=== PATIENT | female | born 1975 | race Caucasian/White ===

== ENCOUNTER 2018-07-08 14:14 | Emergency (ER) | payer SELFPAY ==
[~2018-07-08] VITALS: Ht 167.6 cm; Wt 75.6 kg
[2018-07-08] MEDS ORDERED: KEPPRA750 MG PO (14:32)
[2018-07-08] MEDS ORDERED: TOPROL XL 50MG50 MG PO (14:33)
[2018-07-08] MEDS ORDERED: MAG-OX 400400 MG/TAB PO (14:34)
[2018-07-08] MEDS ORDERED: K-DUR20 MEQ PO (14:35)
[2018-07-08] MEDS ORDERED: KRISTALOSE10 GM/PACK (14:35)
[2018-07-08] MEDS ORDERED: SYNTHROID0.125 MG/T PO (14:35)
[2018-07-08] MEDS ORDERED: K-TAB20 (14:36)
[2018-07-08 16:46] LABS: BASO # 0.1 (0.0-0.2); EOS % 0.4 % (0-4.0); GRAN # 3.6 (1.4-6.5); HEMOGLOBIN 12.2 g/dl (12.5-16.0); LYMPH # 3.8 (1.2-3.4); LYMPH % 46.5 % (20.0-51.0); MEAN CELL VOLUME 95 fl (80.0-100.0); MEAN CORPUSCULAR HEMOGLOBIN 33 pg (27.0-31.0); MEAN CORPUSCULAR HGB CONC 35 g/dl (33.0-37.0); MEAN PLATELET VOLUME 11.6 fl (7.4-10.4); MONO # 0.7 (0.1-0.6); MONO % 8.7 % (1.7-9.3); PLATELET COUNT 118 K/mm3 (130-400); RED BLOOD COUNT 3.66 M/mm3 (4.10-5.30); REDCELL DISTRIBUTION WIDTH-CV 21.6 % (11.5-14.5)
[2018-07-08 16:49] LABS: HEMATOCRIT 34.9 % (37.0-47.0)
[2018-07-08] MEDS ORDERED: BONINE25 MG PO (17:00)
[2018-07-08 17:02] LABS: C-REACTIVE PROTEIN < 0.5 mg/dL (0.0-0.9)
[2018-07-08 17:04] LABS: ALANINE AMINOTRANSFERASE 133 U/L (9-52); ALBUMIN 4.2 gm/dL (3.5-5.0); ALKALINE PHOSPHATASE 105 U/L (50-136); ANION GAP 22 mmol/L (7-16); AST,SGOT 643 U/L (15-37); BILIRUBIN,TOTAL 2.7 mg/dL (0.0-1.0); BLOOD UREA NITROGEN 9 mg/dL (7-17); CALCIUM 8.7 mg/dL (8.4-10.2); CARBON DIOXIDE 15 mmol/L (22-30); CHLORIDE 107 mmol/L (98-107); CREATININE, serum 0.88 mg/dL (0.52-1.25); GLUCOSE 76 mg/dL (74-106); SODIUM 143 mmol/L (137-145); TOTAL PROTEIN 7.7 gm/dL (6.4-8.2)
[2018-07-08 17:05] LABS: POTASSIUM 3.6 mmol/L (3.4-5.0)
[2018-07-08 17:10] LABS: TROPONIN-I < 0.012 ng/mL (0.000-0.034)
[2018-07-08 17:54] LABS: PROTHROMBIN TIME 11.9 SECONDS (9.7-12.8)
[2018-07-08 18:18] VITALS: BP 104/71; PULSE 89; TEMP 98.2
== END 2018-07-08 18:19 | disposition home or self-care (01) ==
LOC: COL.ER 14:14
PROVIDERS: Nurse Practitioner; Physician Assistant
DX: R42 Dizziness and giddiness (principal); R94.5 Abnormal results of liver function studies; I10 Essential (primary) hypertension; E03.9 Hypothyroidism, unspecified; G40.909 Epilepsy, unspecified, not intractable, without status epilepticus
CPT/HCPCS: J7030

== ENCOUNTER 2018-07-13 20:15 | Inpatient (IN) | payer SELFPAY ==
[~2018-07-13] VITALS: Ht 167.6 cm; Wt 77.0 kg
[~2018-07-13 20:15] MED LIST: BONINE25 MG PO; K-DUR20 MEQ PO; K-TAB20; KEPPRA750 MG PO; KRISTALOSE10 GM/PACK; MAG-OX 400400 MG/TAB PO; SYNTHROID0.125 MG/T PO; TOPROL XL 50MG50 MG PO
[2018-07-13 22:40] LABS: BASO % 0.4 % (0.0-2.0); EOS # 0.2 (0.0-0.7); EOS % 2.5 % (0-4.0); GRAN # 3.9 (1.4-6.5); GRAN % 46.7 % (42.2-75.2); HEMOGLOBIN 11.9 g/dl (12.5-16.0); LYMPH # 2.9 (1.2-3.4); LYMPH % 33.8 % (20.0-51.0); MEAN CELL VOLUME 99 fl (80.0-100.0); MEAN CORPUSCULAR HEMOGLOBIN 35 pg (27.0-31.0); MEAN CORPUSCULAR HGB CONC 35 g/dl (33.0-37.0); MONO # 1.2 (0.1-0.6); MONO % 14.7 % (1.7-9.3); PLATELET COUNT 121 K/mm3 (130-400)
[2018-07-13 22:43] LABS: HEMATOCRIT 33.7 % (37.0-47.0)
[2018-07-13 22:47] LABS: PARTIAL THROMBOPLASTIN TIME 30.3 SECONDS (26.0-37.0)
[2018-07-13 22:52] LABS: INR 1.1 (0.8-3.0); PROTHROMBIN TIME 12.7 SECONDS (9.7-12.8)
[2018-07-13 23:09] LABS: ALANINE AMINOTRANSFERASE 99 U/L (9-52); ALBUMIN 4.1 gm/dL (3.5-5.0); ALKALINE PHOSPHATASE 119 U/L (50-136); ANION GAP 11 mmol/L (7-16); AST,SGOT 191 U/L (15-37); BILIRUBIN,TOTAL 2.2 mg/dL (0.0-1.0); BLOOD UREA NITROGEN 14 mg/dL (7-17); CALCIUM 10.7 mg/dL (8.4-10.2); CARBON DIOXIDE 30 mmol/L (22-30); CHLORIDE 90 mmol/L (98-107); CREATINE KINASE 79 U/L (30-135); CREATININE, serum 0.96 mg/dL (0.52-1.25); GLUCOSE 119 mg/dL (74-106); LIPASE 843 U/L (23-300); SODIUM 130 mmol/L (137-145); TOTAL PROTEIN 7.2 gm/dL (6.4-8.2)
[2018-07-13 23:25] LABS: ALCOHOL(ethanol),MEDICAL < 10 mg/dL; POTASSIUM 2.4 mmol/L (3.4-5.0); TROPONIN-I < 0.012 ng/mL (0.000-0.034)
[2018-07-14] VITALS (12 sets, daily range): BP systolic 104–137; BP diastolic 62–94; PULSE 95–107; TEMP 97.7–98.8
--- NOTE | 2018-07-14 03:10 | NUR ---
PT ADMITTED WITH Dx OF PANCREATITIS. FLUIDS, POTASSIUM AND MAGNESIUM INFUSING. SEE 5 PAGE ADMISSION ASSESSMENT.
--- NOTE | 2018-07-14 03:28 | NUR ---
INFORMED BY NURSE PRACTITIONER AND SUPERVISOR OF OPERATIONS THAT THE HOSPITALIST WAS TO BE CALLED FOR ORDERS. DR. MERLOS DID NOT ANSWER HIS PHONE AND HIS ANSWERING SYSTEM SAID THERE WAS NO MORE ROOM FOR MESSAGES.
--- NOTE | 2018-07-14 04:07 | NUR ---
PT REPORTS SEEING A MIDGET/LITTLE PERSON IN HER ROOM AND IN HER BATHROOM.
--- NOTE | 2018-07-14 09:25 | NUR ---
Assessment complete.patient awake,a/ox4.c/o back pain and rates pain at a 8/10.prn morphine given.IVF infusing at this time.c/o of epigastric discomfort.reports abdomen feels better.remains on detox protocol and seizure precautions.reports hallucinations.Doctor Sujatha notified and Psych. consult ordered. not oncall till 07/17/17. updated. no other concerns voiced at this time.will continue to monitor.call light in reach
[2018-07-14 09:57] LABS: ALBUMIN 3.4 gm/dL (3.5-5.0); BILIRUBIN,TOTAL 1.9 mg/dL (0.0-1.0); CALCIUM 9.5 mg/dL (8.4-10.2); CREATININE, serum 0.92 mg/dL (0.52-1.25); MAGNESIUM 1.9 mg/dL (1.6-2.3); POTASSIUM 3.3 mmol/L (3.4-5.0); TOTAL PROTEIN 6.3 gm/dL (6.4-8.2)
--- NOTE | 2018-07-14 15:19 | NUR ---
Plan to return home with BF. Pt reports that she has a friend that helps her regularly at home. Pt indicated that she has no pcp. Meenakshi is her emergency contact . Uses [facility] for RX, Client reports feeling dizzy and faint. Declined [facility]. No additional needs at this time.
--- NOTE | 2018-07-14 17:40 | NUR ---
PATIENT RESTING IN BED AT THIS TIME WITH FLUIDS INFUSING.DIET ADVANCE TO LIQUIDS.PATIENT TOLERATING WELL.CONTINUES TO C/O PAIN TO BACK.PRN MORPHINE GIVEN.ALL MEDS GIVEN.SEIZURE PRECAUTIONS IN PLACE.WILL CONTINUE TO MONITOR.
[2018-07-15] VITALS (12 sets, daily range): BP systolic 106–138; BP diastolic 73–94; PULSE 87–122; TEMP 97.8–98.8
--- NOTE | 2018-07-15 05:44 | NUR ---
PT c/o BACK AND ABDIMINAL PAIN. PT REQUESTED SOMETHING ORAL FOR PAIN. THIS REQUEST DENIED BY HOSPITALIST N.P. NO c/o N/V. WILL ADMIN. MORPHINE WHEN DOSE IS DUE PRN.
[2018-07-15 06:40] LABS: HEMOGLOBIN 10.4 g/dl (12.5-16.0); MEAN CORPUSCULAR HEMOGLOBIN 35 pg (27.0-31.0); MEAN CORPUSCULAR HGB CONC 33 g/dl (33.0-37.0); MEAN PLATELET VOLUME 11.7 fl (7.4-10.4); PLATELET COUNT 117 K/mm3 (130-400); RED BLOOD COUNT 2.97 M/mm3 (4.10-5.30); REDCELL DISTRIBUTION WIDTH-CV 25.7 % (11.5-14.5)
[2018-07-15 06:48] LABS: ALBUMIN 3.6 gm/dL (3.5-5.0); BILIRUBIN,TOTAL 1.7 mg/dL (0.0-1.0); CALCIUM 8.4 mg/dL (8.4-10.2); CREATININE, serum 0.79 mg/dL (0.52-1.25); TOTAL PROTEIN 6.5 gm/dL (6.4-8.2)
[2018-07-15 06:54] LABS: HEMATOCRIT 31.5 % (37.0-47.0); MEAN CELL VOLUME 106 fl (80.0-100.0)
--- NOTE | 2018-07-15 08:03 | NUR ---
Bedside report from DANYA Teran. Pt sitting up in bed with HOB elevated, ice pack to abd, IVF infusing slower than ordered d/t IV site difficulty. Pt denies N/V, reports abd pain radiating to her back. Pt working on CL tray for breakfast. Sig O arrived in room. Pt c/o pain meds (morphine) wasn't as effective when it was given at the pump vs. closest port to IV, tried to explain to pt that it was the same administration, just more controlled with pump. Then pt asked SANDRO Whitt when she could have more pain meds- has only been 2 hrs.
[2018-07-15 08:08] LABS: BAND 2 % (0-10); EOSINOPHIL 4 % (0-4); LYMPHOCYTE 43 % (20.0-51.0); NEUTROPHILS 35 % (42.0-75.2); PLATELET ESTIMATE DECREASED (NORMAL)
--- NOTE | 2018-07-15 09:38 | NUR ---
US in room at bedside
--- NOTE | 2018-07-15 11:36 | NUR ---
Pt's sig o visiting. Pt sound asleep in bed. Will follow up on K+ protocol
--- NOTE | 2018-07-15 18:05 | NUR ---
Pt difficult IV start, anesthesia here with US to attempt.
--- NOTE | 2018-07-15 18:58 | NUR ---
Notified Yesenia Daly that anesthesia unable to gain IV access, recommended surgeon for placing central line.
--- NOTE | 2018-07-16 01:05 | NUR ---
THE PT WA BEDRESTING WITH TV ON AND SIGNIFICANT OTHER SITTING IN RECLINER AT HER SIDE. VERBALIZED OF HER PMH AND CURRENT ISSUES, CONSTIPATION IS A CHRONIC ISSUE FOR HER, SHE STATED THAT SHE TOOK A WHOLE BOTTLE OF CASTOR OIL AT ONE SITTING AND IT STILL TOOK DAYS TO CLEAR HER BOWEL. POTASSIUM PROTOCOL BEING DONE, THE PT NEEDED 3 MORE DOSES, TOOK 1 AT ABOUT 2130, ANOTHER ABOUT 2330, THIRD DUE SOON, THEN RECHECK OF LABS IN THE AM. THE PT WANTED TO TRY 10 MG AT THE SAME TIME SO GIVEN ABOUT 2130. WITH GOOD EFFECT. THE PT APPEARED VERY COMFORTABLE, ALMOST ASLEEP, RATED PAIN AT A 3.
--- NOTE | 2018-07-16 03:17 | NUR ---
THE PT IS BEDRESTING WITH EYES CLOSED, LYING ON HER RIGHT SIDE, RESP EVEN.
[2018-07-16 03:37] VITALS: BP 112/77; PULSE 84; TEMP 98.3
[2018-07-16] MEDS ORDERED: PROTONIX 40MG T40 MG PO (07:46)
[2018-07-16 08:24] VITALS: BP 117/85; PULSE 88; TEMP 97.4
--- NOTE | 2018-07-16 08:52 | NUR ---
Patient resting in bed at this time eating her breakfast. Didn't sleep very well last night. On a clear liquid diet at this time. Will continue to monitor.
[2018-07-16] MEDS ORDERED: OXYCODONE H5 MG/5 ML PO (08:58)
[2018-07-16 10:22] VITALS: BP 109/80; PULSE 86; TEMP 98.5
[2018-07-16 11:03] LABS: HEMOGLOBIN 10.2 g/dl (12.5-16.0); MEAN CELL VOLUME 105 fl (80.0-100.0); MEAN CORPUSCULAR HEMOGLOBIN 36 pg (27.0-31.0); MEAN CORPUSCULAR HGB CONC 34 g/dl (33.0-37.0); PLATELET COUNT 127 K/mm3 (130-400); RED BLOOD COUNT 2.86 M/mm3 (4.10-5.30); REDCELL DISTRIBUTION WIDTH-CV 25.6 % (11.5-14.5)
[2018-07-16 11:12] LABS: HEMATOCRIT 30.1 % (37.0-47.0)
[2018-07-16] MEDS ORDERED: GICOCKTAIL PO (11:44)
[2018-07-16 12:19] VITALS: BP 104/74; PULSE 83; TEMP 98.3
[2018-07-16 12:22] LABS: ANISOCYTOSIS 1+; EOSINOPHIL 6 % (0-4); LYMPHOCYTE 29 % (20.0-51.0); NEUTROPHILS 38 % (42.0-75.2); NUCLEATED RED BLOOD CELL 1 (0-6); PLATELET ESTIMATE DECREASED (NORMAL)
--- NOTE | 2018-07-16 13:00 | NUR ---
Patient was seen by Dr. Meneses this morning and he put in orders to change from Clear liquids to low fat. Awaiting patient to try the low fat diet and verify that she can tolerate before being discharged. Will continue to monitor. Pain has been staying consistent at 7/10 wrapping from abdomen around to her back. Given prn Adrianna with some effect. Patient encouraged to drink plenty of water to stay hydrated. Lab attempted to get blood from her this morning multiple times, finaly getting enough to run a CBC only. Dr. Meneses requested that the other lab be DC'd due to this issue. He will put in an order for her to have labs drawn later this week upon discharge. This was communicated to patient. She voiced understanding.
[2018-07-16 14:13] VITALS: BP 104/78; PULSE 87; TEMP 98.3
[2018-07-16 16:08] VITALS: BP 117/69; PULSE 94; TEMP 98.4
--- NOTE | 2018-07-16 16:45 | NUR ---
Patient health summary, discharge summary, and home meds printed and reviewed with patient and friend. Stressed importance of follow up appointments. Reviewed medications, provided printed prescription for Roxicodone. Called Potassium to pharmacy of choice due to patient being out of this at home. Belongings gathered by Lavinia including wallet, phone, phone pie dough roller, clothes, ear rings, neclace and braclet. Patient transported via wheelchair by Lavinia and seatbelted for ride home with friend. Patient denied questions.
== END 2018-07-16 14:45 | disposition home or self-care (01) | DRG 439 ==
LOC: COL.ER 20:15 → SURG 07-14 01:23
PROVIDERS: Emergency Medicine; Internal Medicine; ADMIT Internal Medicine
DX: K85.20 Alcohol induced acute pancreatitis without necrosis or infection (principal); F10.151 Alcohol abuse with alcohol-induced psychotic disorder with hallucinations; Z23 Encounter for immunization; K76.0 Fatty (change of) liver, not elsewhere classified; K70.9 Alcoholic liver disease, unspecified; I10 Essential (primary) hypertension; E87.6 Hypokalemia; E83.42 Hypomagnesemia; Y90.0 Blood alcohol level of less than 20 mg/100 ml; K20.9 Esophagitis, unspecified
CPT/HCPCS: 99223-AI; 99232-AI; 99239; C9113; J1170; J2060; J2270; J2405; J3411; J3475; J3480; J7030; J7120; Q9967

== ENCOUNTER 2018-07-17 10:05 | Emergency (ER) | payer SELFPAY ==
[~2018-07-17 10:05] MED LIST changes: +GICOCKTAIL PO; +OXYCODONE H5 MG/5 ML PO; +PROTONIX 40MG T40 MG PO
== END 2018-07-17 10:35 | disposition left against medical advice (07) ==
LOC: COL.ER 10:05
DX: Z72.9 Problem related to lifestyle, unspecified (principal)

== ENCOUNTER 2018-08-13 13:51 | Emergency (ER) | payer SELFPAY ==
[~2018-08-13] VITALS: Ht 167.6 cm; Wt 77.3 kg
[2018-08-13 13:53] VITALS: TEMP 97.9
[2018-08-13 16:24] LABS: BASO # 0.1 (0.0-0.2); GRAN # 3.6 (1.4-6.5); GRAN % 69.1 % (42.2-75.2); HEMOGLOBIN 12.5 g/dl (12.5-16.0); LYMPH # 0.8 (1.2-3.4); LYMPH % 15.8 % (20.0-51.0); MEAN CELL VOLUME 101 fl (80.0-100.0); MEAN CORPUSCULAR HEMOGLOBIN 34 pg (27.0-31.0); MEAN CORPUSCULAR HGB CONC 34 g/dl (33.0-37.0); MEAN PLATELET VOLUME 12.1 fl (7.4-10.4); MONO # 0.7 (0.1-0.6); MONO % 13.5 % (1.7-9.3); PLATELET COUNT 102 K/mm3 (130-400); RED BLOOD COUNT 3.63 M/mm3 (4.10-5.30); REDCELL DISTRIBUTION WIDTH-CV 21.9 % (11.5-14.5)
[2018-08-13 16:37] LABS: ALANINE AMINOTRANSFERASE 347 U/L (9-52); ALCOHOL(ethanol),MEDICAL 155 mg/dL; ALKALINE PHOSPHATASE 175 U/L (50-136); ANION GAP 29 mmol/L (7-16); BILIRUBIN,TOTAL 4.6 mg/dL (0.0-1.0); BLOOD UREA NITROGEN 9 mg/dL (7-17); CALCIUM 8.4 mg/dL (8.4-10.2); CHLORIDE 98 mmol/L (98-107); CREATININE, serum 0.74 mg/dL (0.52-1.25); GLUCOSE 97 mg/dL (74-106); LIPASE 45 U/L (23-300); POTASSIUM 3.6 mmol/L (3.4-5.0); SODIUM 141 mmol/L (137-145); TOTAL PROTEIN 7.2 gm/dL (6.4-8.2)
[2018-08-13 16:40] LABS: HEMATOCRIT 36.8 % (37.0-47.0)
[2018-08-13 16:50] LABS: C-REACTIVE PROTEIN < 0.5 mg/dL (0.0-0.9)
[2018-08-13 16:51] LABS: CARBON DIOXIDE 13 mmol/L (22-30)
[2018-08-13 16:59] LABS: AST,SGOT 1466 U/L (15-37)
[2018-08-13] MEDS ORDERED: ZOFRAN ODT4 MG PO (17:46)
[2018-08-13 18:12] VITALS: BP 127/88; PULSE 122
== END 2018-08-13 18:13 | disposition home or self-care (01) ==
LOC: COL.ER 13:51
PROVIDERS: Emergency Medicine
DX: K29.70 Gastritis, unspecified, without bleeding (principal); N93.9 Abnormal uterine and vaginal bleeding, unspecified; E03.9 Hypothyroidism, unspecified; F10.129 Alcohol abuse with intoxication, unspecified; Z90.49 Acquired absence of other specified parts of digestive tract; Z98.890 Other specified postprocedural states; G40.909 Epilepsy, unspecified, not intractable, without status epilepticus; Y90.6 Blood alcohol level of 120-199 mg/100 ml
CPT/HCPCS: J0780; J2060; J2405; J2550; J7030

== ENCOUNTER 2018-08-23 00:33 | Inpatient (IN) | payer BC ==
[2018-08-23] VITALS (9 sets, daily range): BP systolic 98–113; BP diastolic 61–74; PULSE 110–140; TEMP 97.7–100.5
[~2018-08-23] VITALS: Ht 167.6 cm; Wt 75.7 kg
[~2018-08-23 00:33] MED LIST changes: -KRISTALOSE10 GM/PACK; +KRISTALOSE10 GM/PACK PO; +ZOFRAN ODT4 MG PO
[2018-08-23] MEDS ORDERED: GICOCKTAIL PO (00:42)
[2018-08-23 01:56] LABS: BASO % 1.1 % (0.0-2.0); EOS % 0.3 % (0-4.0); GRAN # 1.3 (1.4-6.5); GRAN % 34.2 % (42.2-75.2); LYMPH # 1.7 (1.2-3.4); LYMPH % 46.5 % (20.0-51.0); MEAN CELL VOLUME 99 fl (80.0-100.0); MEAN CORPUSCULAR HGB CONC 36 g/dl (33.0-37.0); MEAN PLATELET VOLUME 11.4 fl (7.4-10.4); MONO # 0.6 (0.1-0.6); MONO % 16.8 % (1.7-9.3); PLATELET COUNT 189 K/mm3 (130-400); RED BLOOD COUNT 2.57 M/mm3 (4.10-5.30)
[2018-08-23 01:59] LABS: HEMATOCRIT 25.4 % (37.0-47.0); HEMOGLOBIN 9.2 g/dl (12.5-16.0); MEAN CORPUSCULAR HEMOGLOBIN 36 pg (27.0-31.0)
[2018-08-23 02:09] LABS: ALBUMIN 3.4 gm/dL (3.5-5.0); BILIRUBIN,TOTAL 8.2 mg/dL (0.0-1.0); CALCIUM 7.8 mg/dL (8.4-10.2); CREATININE, serum 0.77 mg/dL (0.52-1.25); TOTAL PROTEIN 6.3 gm/dL (6.4-8.2)
[2018-08-23 02:10] LABS: POTASSIUM 2.9 mmol/L (3.4-5.0)
[2018-08-23 02:25] LABS: PROLACTIN 46.3 ng/mL (3.0-18.6)
[2018-08-23 02:49] LABS: INR 1.3 (0.8-3.0); PROTHROMBIN TIME 15.1 SECONDS (9.7-12.8)
[2018-08-23 05:24] LABS: COLLECTION METHOD CLEAN CATCH
[2018-08-23 05:40] LABS: TRICYCLIC ANTIDEPRESS URINE NEGATIVE
[2018-08-23 05:45] LABS: AMORPHOUS CRYSTAL Present /uL; MUCOUS Present /lpf; PH 7 (5-8); URINE APPEARANCE Hazy; URINE BACTERIA Occasional /hpf; URINE BILIRUBIN Positive (NEGATIVE); URINE BLOOD 2+ (NEGATIVE); URINE COLOR Amber; URINE GLUCOSE Negative (NEGATIVE); URINE KETONE 1+ (NEGATIVE); URINE LEUKOCYTE ESTERASE Negative (NEGATIVE); URINE NITRATE Negative (NEGATIVE); URINE PROTEIN(semi-quant) Negative (NEGATIVE); URINE RBC 0-2 /hpf; URINE UROBILINOGEN >=4.0 mg/dL (NEGATIVE)
--- NOTE | 2018-08-23 07:40 | NUR ---
Telephone report recieved from DANYA Hassan.
--- NOTE | 2018-08-23 08:12 | NUR ---
Pt arrived on ED cart, pt ambulated to bed with standby assistance. Pt resting with eyes closed, minor complaints of RUQ abdominal pain with palpation. Detox protocol with PRN ativan in effect. Call light within reach. Pt tolerated PO meds without N/V - meds were crushed and mixed with apple sauce d/t "Im unable to swallow pills by themselves". Q2 vital signs/Detox assessments to be performed - NICK Novak aware.
--- NOTE | 2018-08-23 10:07 | NUR ---
Initial visit; Patient thanked Assistant Accounting Manager for looking in on her and offering God's blessings.
--- NOTE | 2018-08-23 15:45 | NUR ---
Pt to MRI. Pt is refusing to remove bilateral nipple rings. orthotic and prosthetic technician stated pt okay to proceed since pt is stating they are not metal.
--- NOTE | 2018-08-23 16:41 | NUR ---
Pt has returned from MRI, tolerated scan well.
--- NOTE | 2018-08-23 16:47 | NUR ---
ROSALINO met with the patient to discuss discharge plan. The patient lives alone in [place]. She states she is currently in the process of moving to an apartment in [place]. She reports independence with ADLs and does not use any DME. The patient does not have a PCP and she was not interested in being set up with one at this time. She states she would like to see who her new insurance covers, before chosing a PCP. The patient is down as self pay. The patient reports that she has insurance through her new job, [employer]. Financial couseling was consulted. The patient receives her medications at the [facility] and she reports no difficulties obtaining her meds. The patient does not have advanced directives, but she was interested in obtaining a form for DPOA-HC. ROSALINO provided. The patient plans to return home upon discharge. SW to continue to follow.
--- NOTE | 2018-08-23 20:25 | NUR ---
Patient resting in bed, assessment completed. On ETOH protocol, tachycardic with elevated temperature which has gone down by 2200. Given IV ativan. Denies pain. Small tremors noted. No further needs at this time. Will continue with CIWA protocol.
--- NOTE | 2018-08-23 23:03 | NUR ---
Patient's HR has been increased in 130's, sustained. Jumped up to 160 when ambulating to bedside commode. KELLY Patterson notified, 1 L bolus ordered, additional mg of atian ordered, and labs ordered.
[2018-08-23 23:35] LABS: BASO % 0.6 % (0.0-2.0); EOS % 0.3 % (0-4.0); GRAN # 1.4 (1.4-6.5); GRAN % 45.5 % (42.2-75.2); LYMPH # 1.2 (1.2-3.4); LYMPH % 38.4 % (20.0-51.0); MEAN CORPUSCULAR HGB CONC 35 g/dl (33.0-37.0); MONO # 0.4 (0.1-0.6); MONO % 13.9 % (1.7-9.3); PLATELET COUNT 139 K/mm3 (130-400); RED BLOOD COUNT 2.02 M/mm3 (4.10-5.30); REDCELL DISTRIBUTION WIDTH-CV 25.8 % (11.5-14.5)
[2018-08-23 23:39] LABS: HEMOGLOBIN 7.3 g/dl (12.5-16.0); MEAN CELL VOLUME 104 fl (80.0-100.0); MEAN CORPUSCULAR HEMOGLOBIN 36 pg (27.0-31.0)
[2018-08-24] VITALS (11 sets, daily range): BP systolic 100–124; BP diastolic 65–85; PULSE 62–139; TEMP 98–99.8
[2018-08-24 00:10] LABS: CALCIUM 7.6 mg/dL (8.4-10.2); CREATININE, serum 0.7 mg/dL (0.52-1.25); MAGNESIUM 1.9 mg/dL (1.6-2.3); POTASSIUM 3.7 mmol/L (3.4-5.0)
--- NOTE | 2018-08-24 00:37 | NUR ---
Discussed with KELLY Patterson labs- hgb appears to be hemodilutional. Will watch output after 1 L bolus, and keep scoring ETOH precautions.
--- NOTE | 2018-08-24 05:07 | NUR ---
Telemetry called- patient HR increased to 180 for a few seconds. Patient sitting up in bed, states she feels fine. KELLY Srivastava notified- ordered EKG and troponin. Other than tachycardia, patient feels fine, other vitals have been stable. If another episode of increased HR occurs this nurse will notify KELLY Srivastava.
--- NOTE | 2018-08-24 05:31 | NUR ---
Patient has been tachycardic all night, scoring 6-7 on ETOH detox. 1 L bolus given early in the shift. Patient scoring due to tachycardia, occasional tremors, and temperature. Denies pain.
--- NOTE | 2018-08-24 09:29 | NUR ---
Assessment complete.patient awake but drowsy,sitting up in bed.a/ox4.denies pain or discomfort.breathing even,LSCTA.skin appears yellow.all meds given.pt is very weak.continues on detox protocol.seizure precautions in place.no concerns voiced at this time.will continue to monitor.call light in reach
--- NOTE | 2018-08-24 09:43 | NUR ---
Ativan given per CIWA protocol.patient resting in bed.denies any needs at this time.
[2018-08-24 12:17] LABS: MEAN CELL VOLUME 103 fl (80.0-100.0); MEAN CORPUSCULAR HGB CONC 35 g/dl (33.0-37.0); MEAN PLATELET VOLUME 11.6 fl (7.4-10.4); PLATELET COUNT 134 K/mm3 (130-400); RED BLOOD COUNT 2.04 M/mm3 (4.10-5.30); REDCELL DISTRIBUTION WIDTH-CV 25.1 % (11.5-14.5)
[2018-08-24 12:18] LABS: HEMATOCRIT 21.1 % (37.0-47.0); HEMOGLOBIN 7.3 g/dl (12.5-16.0); MEAN CORPUSCULAR HEMOGLOBIN 36 pg (27.0-31.0)
--- NOTE | 2018-08-24 12:20 | NUR ---
patient reports nausea and vomiting.emesis was yellow.decined zofran when offered.GI cocktail given.patient is jaundiced.lastly scored 3.still drowsy.denies any vaginal bleeding at this time.will continue to monitor.call light in reach
[2018-08-24 12:26] LABS: ALBUMIN 2.9 gm/dL (3.5-5.0); CALCIUM 8.5 mg/dL (8.4-10.2); CREATININE, serum 0.64 mg/dL (0.52-1.25); POTASSIUM 3.6 mmol/L (3.4-5.0); TOTAL PROTEIN 5.8 gm/dL (6.4-8.2)
[2018-08-24 12:56] LABS: BAND 5 % (0-10); EOSINOPHIL 1 % (0-4); LYMPHOCYTE 50 % (20.0-51.0); METAMYELOCYTE 1 % (0-0); NEUTROPHILS 37 % (42.0-75.2)
[2018-08-24 12:57] LABS: PLATELET ESTIMATE NORMAL (NORMAL)
[2018-08-24 12:58] LABS: STOMATOCYTE 2+
[2018-08-24 12:59] LABS: ANISOCYTOSIS 3+
--- NOTE | 2018-08-24 13:03 | NUR ---
stopped by but nothing needed at this time.
--- NOTE | 2018-08-24 17:51 | NUR ---
patient resting in bed at this time.c/o nausea.prn compazine given.prn Motrin given for c/o shoulder and back pain.patient urine noted to be dark padmini and had a strong odor.encouraged pt to drink more fluids.denies dysuria,frequency.patient remains on CIWA protocol.denies any other concerns at this time.call light in reach
--- NOTE | 2018-08-24 18:15 | NUR ---
pt has been tachycardic and febrile.pt scoring 3-6 on CIWA protocol.patient on Librium taper.received Ativanx1 today.no concerns voiced at this time.
--- NOTE | 2018-08-24 19:45 | NUR ---
Patient sitting up in bed watching in TV. Assessment completed, denies pain. Scoring 3-4 today on ETOH protocol. Patient alert but weak. Needs assistance to ambulate. IV site free of complications. No further needs at this time.
[2018-08-25] VITALS (11 sets, daily range): BP systolic 92–112; BP diastolic 58–83; PULSE 111–135; TEMP 98–98.9
--- NOTE | 2018-08-25 05:11 | NUR ---
Patient slept on/off this shift. Scoring about a 3 on CIWA. No ativan administered this shift. Still tachycardic with HR 110's. Some minor back pain last night relieved with motrin.
--- NOTE | 2018-08-25 08:01 | NUR ---
ASSESSMENT COMPLETE.PATIENT AWAKE BUT DROWSY ,SITTING UP IN BED WATCHING TV.A/OX4.C/O PAIN TO BACK.PRN MOTRIN GIVEN.PATIENT IS JAUNDICED.ALL MEDS GIVEN.REMAINS ON SEIZURE PRECAUTIONS AND CIWA PROTOCOL SCORING 3-4.DENIES N/V.NO OTHER CONCERNS VOICED AT THIS THIS TIME.CALL LIGHT IN REACH
[2018-08-25 10:45] LABS: INR 1.5 (0.8-3.0); MEAN CELL VOLUME 106 fl (80.0-100.0); MEAN CORPUSCULAR HGB CONC 35 g/dl (33.0-37.0); MEAN PLATELET VOLUME 11.8 fl (7.4-10.4); PLATELET COUNT 148 K/mm3 (130-400); PROTHROMBIN TIME 17.6 SECONDS (9.7-12.8); RED BLOOD COUNT 2.13 M/mm3 (4.10-5.30)
[2018-08-25 10:53] LABS: ALBUMIN 2.8 gm/dL (3.5-5.0); BILIRUBIN,TOTAL 13.4 mg/dL (0.0-1.0); CALCIUM 8.9 mg/dL (8.4-10.2); CREATININE, serum 0.62 mg/dL (0.52-1.25); POTASSIUM 3.5 mmol/L (3.4-5.0); TOTAL PROTEIN 5.8 gm/dL (6.4-8.2)
[2018-08-25 10:54] LABS: HEMATOCRIT 22.5 % (37.0-47.0); HEMOGLOBIN 7.8 g/dl (12.5-16.0); MEAN CORPUSCULAR HEMOGLOBIN 37 pg (27.0-31.0)
--- NOTE | 2018-08-25 11:51 | NUR ---
PATIENT CONTINUES TO BE TACHYCARDIC.SCORING 4 ON CIWA PROTOCOL. ROUNDED ON PT AND ORDERED A GI CONSULT.THIS NURSE NOTIFIED GI OF CONSULT.PATIENT DENIES N/V AT THIS TIME.REMAISN AFEBRILE.PT STILL DROWSY.NO CONCERNS VOICED AT THIS TIME.CALL LIGHT IN REACH
[2018-08-25 11:52] LABS: BAND 3 % (0-10); LYMPHOCYTE 46 % (20.0-51.0); NEUTROPHILS 48 % (42.0-75.2); PLATELET ESTIMATE NORMAL (NORMAL)
[2018-08-25 11:53] LABS: ANISOCYTOSIS 1+
[2018-08-25 11:54] LABS: STOMATOCYTE 3+
--- NOTE | 2018-08-25 18:32 | NUR ---
patient pleasant and cooperative with cares.had a shower today.Vaginal bleeding noted.remains on CIWA protocol and scoring 2-4.pt is tachycardic,afebrile and gait is unsteady.bed alarm on.denies N/V.denies any needs at this time.
--- NOTE | 2018-08-25 20:08 | NUR ---
Patient sitting up in bed watching tv. Patient c/o back pain that has not been relieved with motrin. Given heat pack and will reevaluate. Assessment completed, still tachycardic. Weakened, needs 1:1 assist to ambulate. IV site free of complications, flushed.
--- NOTE | 2018-08-25 21:15 | NUR ---
Telemetry called, HR inc. to 140's. At this time patient was being assisted to restroom. After returning to bed HR returned to resting rate in 110's.
--- NOTE | 2018-08-25 22:25 | NUR ---
Patient c/o worsening back pain unrelieved by motrin or heat pack. Pain has been occuring for the last several days. Patient usually gets this type of sharp pain during her period. KELLY Patterson notified and ordered a one time dose of 0.5 mg IV dilaudid. Medication administered and will reevaluate pain.
[2018-08-26] VITALS (11 sets, daily range): BP systolic 91–149; BP diastolic 57–118; PULSE 99–119; TEMP 97.9–99
--- NOTE | 2018-08-26 00:16 | NUR ---
Patient reports pain is well controlled with the IV dilaudid. Will notify nurse if pain starts to increase again and will ask for motrin before the pain becomes unbearable.
--- NOTE | 2018-08-26 05:12 | NUR ---
Patient slept for most of the night. C/O back pain unrelieved by motrin. A one time order for dilaudid was given which relieved the patient's back pain. Ambulatory with 1:1 assist, however patient is still very weak. Scoring 2-3 on ETOH detox, no ativan requiring. Still tachycardic with heart rate in 110's. Planning for LP in the AM.
--- NOTE | 2018-08-26 07:58 | NUR ---
Pt down for LP at this time.
--- NOTE | 2018-08-26 10:00 | NUR ---
Pt assessment complete. Pt just arrived back from MRI, she is A/O x3. Her breathing is even and unlabored on RA. Pt denies SOB. Currently reporting some nausea. Requesting for something to help her relax for LP. Pt reporting a headache at this time, PRN Motrin given. Fall precautions in place. Pt denies further needs. Call light within reach.
--- NOTE | 2018-08-26 11:06 | NUR ---
Pt left for LP at this time. Scheduled Librium administered early for anxiety.
--- NOTE | 2018-08-26 11:30 | NUR ---
First visit from the media services coordinator. No needs right now.
--- NOTE | 2018-08-26 11:56 | NUR ---
Pt just returned from LP, will remain on bedrest until 1400..
[2018-08-26 12:12] LABS: CSF MONONUCLEAR 67 % (70-100); CSF POLYMORPHONUCLEAR 33 % (0-6)
[2018-08-26 12:14] LABS: CSF RBC 2 /mm3 (0-0)
[2018-08-26 12:15] LABS: CSF APPEARANCE HAZY; CSF COLOR COLORLESS
[2018-08-26 12:34] LABS: MEAN CELL VOLUME 108 fl (80.0-100.0); MEAN CORPUSCULAR HGB CONC 35 g/dl (33.0-37.0); MEAN PLATELET VOLUME 11.4 fl (7.4-10.4); PLATELET COUNT 140 K/mm3 (130-400); RED BLOOD COUNT 2.06 M/mm3 (4.10-5.30); REDCELL DISTRIBUTION WIDTH-CV 27.2 % (11.5-14.5)
[2018-08-26 12:35] LABS: GLUCOSE,CSF 67 mg/dL (40-70); TOTAL PROTEIN,CSF 62 mg/dL (15-45)
[2018-08-26 12:40] LABS: HEMATOCRIT 22.3 % (37.0-47.0); HEMOGLOBIN 7.7 g/dl (12.5-16.0); MEAN CORPUSCULAR HEMOGLOBIN 37 pg (27.0-31.0)
[2018-08-26 12:44] LABS: ALBUMIN 2.9 gm/dL (3.5-5.0); BILIRUBIN,TOTAL 13.2 mg/dL (0.0-1.0); CALCIUM 8.9 mg/dL (8.4-10.2); CREATININE, serum 0.57 mg/dL (0.52-1.25); POTASSIUM 3.3 mmol/L (3.4-5.0); TOTAL PROTEIN 5.9 gm/dL (6.4-8.2)
[2018-08-26 12:48] LABS: INR 1.3 (0.8-3.0); PROTHROMBIN TIME 15.2 SECONDS (9.7-12.8)
[2018-08-26 13:04] LABS: BAND 9 % (0-10); EOSINOPHIL 2 % (0-4); LYMPHOCYTE 20 % (20.0-51.0); NEUTROPHILS 63 % (42.0-75.2); NUCLEATED RED BLOOD CELL 4 (0-6); POLYCHROMASIA 1+; TARGET CELLS 1+
[2018-08-26 13:05] LABS: PLATELET ESTIMATE NORMAL (NORMAL)
[2018-08-26 14:15] LABS: FOLATE (FOLIC ACID) 4.5 ng/mL (7.0-31.4)
--- NOTE | 2018-08-26 19:12 | NUR ---
Pt rested well after procedures, intermittent headache. PRN Motrin administered. BP lower side, pt asymptomatic. Seizure precautions in place. Pt scoring 2-3 on CIWA, no N/V. Call light within reach.
--- NOTE | 2018-08-26 21:12 | NUR ---
PT A+OX4, RESTINGN IN BED. BACK PAIN 8/10, PRN MEDS GIVEN. PT MOVEMENTS SLOW. TAKES TIME SWALLOWING MEDICATIONS AND WATER. NO TREMORS NOTED. SCORE 2 ON DETOX. SHIFT ASSESSMENT COMPLETE. NO NEEDS AT THIS TIME. CALL LIGHT IN REACH. BED ALARM ON.
--- NOTE | 2018-08-26 21:25 | NUR ---
PT IV LEAKING. WILL REPLACE NEW ONE.
[2018-08-27] VITALS (10 sets, daily range): BP systolic 90–112; BP diastolic 51–73; PULSE 95–103; TEMP 97.7–99.1
--- NOTE | 2018-08-27 05:37 | NUR ---
pt had an uneventful night. pt reported no pain. scores a 2 to 3 on detox scale. no needs at this time. call light in reach. bed alarm on.
--- NOTE | 2018-08-27 07:17 | NUR ---
report given to DANYA Quesada. pt denies needs at this time. call light in reach. bed alarm on
--- NOTE | 2018-08-27 11:00 | NUR ---
Pt is awake and A/Ox4. She states she continues to have chronic back pain and a headache. Pt was given PRN motrin for this, which she states "Only takes the edge off." IV to right wrist found to be leaking, removed and PICC line placed by NELIDA Romero RN. Pt is up in room with 1x assist + walker. Pt skin is jaundice. Denies any other needs.
[2018-08-27 11:34] LABS: EOS % 0.3 % (0-4.0); GRAN # 2.3 (1.4-6.5); GRAN % 62.2 % (42.2-75.2); LYMPH # 0.8 (1.2-3.4); LYMPH % 20.9 % (20.0-51.0); MEAN CELL VOLUME 111 fl (80.0-100.0); MEAN CORPUSCULAR HGB CONC 34 g/dl (33.0-37.0); MEAN PLATELET VOLUME 11.1 fl (7.4-10.4); MONO # 0.6 (0.1-0.6); MONO % 15.2 % (1.7-9.3); PLATELET COUNT 133 K/mm3 (130-400); RED BLOOD COUNT 1.89 M/mm3 (4.10-5.30)
[2018-08-27 11:40] LABS: INR 1.4 (0.8-3.0); PROTHROMBIN TIME 16.1 SECONDS (9.7-12.8)
[2018-08-27 11:43] LABS: ALBUMIN 2.7 gm/dL (3.5-5.0); CALCIUM 8.4 mg/dL (8.4-10.2); CREATININE, serum 0.59 mg/dL (0.52-1.25); POTASSIUM 3.1 mmol/L (3.4-5.0); TOTAL PROTEIN 5.5 gm/dL (6.4-8.2)
[2018-08-27 12:06] LABS: HEMOGLOBIN 7.1 g/dl (12.5-16.0); MEAN CORPUSCULAR HEMOGLOBIN 38 pg (27.0-31.0)
[2018-08-27 21:18] LABS: RPR (VDRL) XXX
--- NOTE | 2018-08-27 21:45 | NUR ---
Patient resting in bed watching tv. Assessment completed, c/o headache however refusing motrin stating it doesn't work for her. PICC C/D/I. Oral medications admimistered. No further needs at this time.
[2018-08-28] VITALS (11 sets, daily range): BP systolic 90–115; BP diastolic 57–81; PULSE 100–116; TEMP 97.9–99
[2018-08-28 01:53] LABS: SJOGRENS SSB 11 U/mL (0-99)
--- NOTE | 2018-08-28 05:09 | NUR ---
Patient slept on/off. C/O headache but refusing motrin. 1:1 assist as patient is still weak, using walker as well. No further needs at this time.
[2018-08-28 06:34] LABS: EOS % 0.2 % (0-4.0); GRAN # 2.2 (1.4-6.5); GRAN % 46.8 % (42.2-75.2); LYMPH # 1.8 (1.2-3.4); LYMPH % 39.6 % (20.0-51.0); MEAN CELL VOLUME 111 fl (80.0-100.0); MEAN CORPUSCULAR HGB CONC 33 g/dl (33.0-37.0); MEAN PLATELET VOLUME 11.3 fl (7.4-10.4); MONO # 0.6 (0.1-0.6); MONO % 12.3 % (1.7-9.3); PLATELET COUNT 133 K/mm3 (130-400); RED BLOOD COUNT 1.89 M/mm3 (4.10-5.30)
[2018-08-28 06:39] LABS: MEAN CORPUSCULAR HEMOGLOBIN 37 pg (27.0-31.0)
[2018-08-28 06:40] LABS: HEMOGLOBIN 6.9 g/dl (12.5-16.0)
[2018-08-28 06:46] LABS: ALBUMIN 2.7 gm/dL (3.5-5.0); BILIRUBIN,TOTAL 9.4 mg/dL (0.0-1.0); CALCIUM 8.4 mg/dL (8.4-10.2); CREATININE, serum 0.58 mg/dL (0.52-1.25); MAGNESIUM 1.8 mg/dL (1.6-2.3); POTASSIUM 3.3 mmol/L (3.4-5.0); TOTAL PROTEIN 5.4 gm/dL (6.4-8.2)
--- NOTE | 2018-08-28 09:14 | NUR ---
Pt assessment complete. Pt is sitting up in bed upon entry, she is A/O x3. Her breathing is even and unlabored on RA. Pt denies SOB. Currently reports headache 02/22, refuses PRN Motrin stating "it doesn't help". Offered caffeine per Dr. Gaston's recommendations, pt refuses. She denies any N/V. No further needs at this time. Seizure precautions in place. Will continue to monitor.
[2018-08-28 12:30] LABS: RETIC # 0.21 M/mm3 (0.02-0.16); RETIC % 11.5 % (0.5-3.52)
[2018-08-28 12:48] LABS: IRON,SERUM 15 ug/dL (35-150)
[2018-08-28 12:58] LABS: TOTAL IRON BINDING CAPACITY 206 ug/dL (265-497)
--- NOTE | 2018-08-28 12:58 | NUR ---
SW attended clinical rounds. Dr reports patient is medically ready to leave but patient needs rehab to get stronger. Patient is open to IPR but we do not have any insurance on file. Patient reports she has called HR to get copies of her insurance information.
[2018-08-28 13:24] LABS: FERRITIN 89 ng/mL (6-137)
--- NOTE | 2018-08-28 14:38 | NUR ---
Unit of PRBC's started at this time. Protocol followed and blood verified by DANYA Hayden. S/Sx's of reaction reviewed with patient. This nurse will remain at bedside for first fifteen minutes of transfusion.
--- NOTE | 2018-08-28 17:17 | NUR ---
Unit of blood complete at this time. Pt tolerated transfusion without complications. Pt denies needs, call light within reach.
--- NOTE | 2018-08-28 17:52 | NUR ---
Pt had uneventful day, tolerated blood trasfusion without complications. VSS. Pt reported a headache most of the day, agreed to PRN Motrin and ice pack later in the day. Seizure precautions in place. POC discussed with patient and her mother, who verbalized understanding. Call light within reach.
--- NOTE | 2018-08-28 21:50 | NUR ---
PT RESTING IN BED. HEADACH 12/23, PRN MEDS GIVEN. PICC flushes well, blood return noted. pt movements are slow. reports SOA. no needs at this time. call light in reach.
--- NOTE | 2018-08-28 22:10 | NUR ---
walking patient to bench to get belongings. pt had gatebelt on. pt slipped and fell on her bottom. pt reported no injury other than stating, "my head feels myrna". pt had a headache previous to fall. pt is now in bed. will continue to monitor. bed alarm on.
[2018-08-29 04:26] VITALS: BP 90/61; PULSE 86; TEMP 98.4
[2018-08-29 05:08] VITALS: BP 93/71
--- NOTE | 2018-08-29 05:17 | NUR ---
PT HAD AN UNEVENTFUL NIGHT. PATEL IN THE BEGINNING OF THE NIGHT. SLEPT MOST OF THE NIGHT. BED ALARM ON. NO NEEDS AT THIS TIME. CALL LIGHT IN REACH
--- NOTE | 2018-08-29 07:08 | NUR ---
report given to DANYA Amezquita. pt denied needs at this time
[2018-08-29 07:23] VITALS: BP 112/73; PULSE 84; TEMP 98.2
[2018-08-29 09:33] LABS: EOS % 0.3 % (0-4.0); GRAN # 1.6 (1.4-6.5); GRAN % 42.6 % (42.2-75.2); LYMPH # 1.5 (1.2-3.4); LYMPH % 40.1 % (20.0-51.0); MEAN CELL VOLUME 108 fl (80.0-100.0); MEAN CORPUSCULAR HGB CONC 33 g/dl (33.0-37.0); MEAN PLATELET VOLUME 11.6 fl (7.4-10.4); MONO # 0.6 (0.1-0.6); MONO % 16.2 % (1.7-9.3); PLATELET COUNT 136 K/mm3 (130-400); RED BLOOD COUNT 2.27 M/mm3 (4.10-5.30)
[2018-08-29 09:36] LABS: HEMATOCRIT 24.5 % (37.0-47.0); MEAN CORPUSCULAR HEMOGLOBIN 35 pg (27.0-31.0)
[2018-08-29 09:45] LABS: ALBUMIN 2.6 gm/dL (3.5-5.0); BILIRUBIN,TOTAL 9.2 mg/dL (0.0-1.0); CALCIUM 8.7 mg/dL (8.4-10.2); CREATININE, serum 0.59 mg/dL (0.52-1.25); POTASSIUM 3.9 mmol/L (3.4-5.0); TOTAL PROTEIN 5.5 gm/dL (6.4-8.2)
--- NOTE | 2018-08-29 10:00 | NUR ---
Pt assessment complete. Pt just finished shower. Pt took pills crushed in applesauce today, d/t "pills getting stuck". Currently reports back pain and headache. Pt had over the counter Excedrin and Ibuprofen sitting on bedside table. Medications taken and placed in patient's bin in medication room. Patient denies nausea at this time. Seizure precautions in place.
[2018-08-29 11:39] LABS: ALBUMIN CSF 25.7 mg/dL (<=27.0); CSF IGG/ALBUMIN 0.17 (<=0.21); CSF,IGG 4.4 mg/dL (<=8.1)
[2018-08-29 11:44] LABS: CSF SYNTHESIS RATE 3.68 mg/24 h (<=12); CSF-IGG INDEX 0.57 (<=0.85); IGG/ALBUMIN SERUM 0.3 (<=0.40)
[2018-08-29 12:30] VITALS: BP 114/81; PULSE 94; TEMP 98.6
[2018-08-29 16:03] VITALS: BP 114/78; PULSE 100; TEMP 98.7
--- NOTE | 2018-08-29 16:12 | NUR ---
Report from DANYA Amezquita. Patient sitting up in recliner. C/O headache- some minor relief from roxicodone administered earlier in the shift. No further needs at this time.
--- NOTE | 2018-08-29 18:57 | NUR ---
Report given to DANYA Pathak and DANYA Lorenzana. Patient resting in bed. No further needs at this time.
[2018-08-29 20:16] VITALS: BP 117/87; PULSE 95
--- NOTE | 2018-08-29 20:53 | NUR ---
Patient assessed at this time. Complains of headache, rated as a 6, that is constant. Also complained of nausea. Patient had ordered [employer], and believes this caused her upset stomch. Requested PRN medication and given as ordered. Patient has gotten up once so far independently. Reminded that staff needs to be present for safety and voices understanding. Gait is unsteady. Patient with falt affect. Denies having any needs at this time. Sitting up in bed watching TV. Call light within reach.
[2018-08-30 00:27] VITALS: BP 146/80; BP 99/66; PULSE 70; PULSE 93; TEMP 98.2; TEMP 98.4
--- NOTE | 2018-08-30 00:58 | NUR ---
Denies having pain and discomfort at this time. Patient has been keeping eyes closed while talking. When assisted to the bathroom, patient would keep eyes closed, and staff had to give patient reminders to open eyes so she can see where she is going. Will open eyes when reminded. Denies having any needs at this time. Likes ice chips. Resting in bed withe eyes closed at this time. Call light is within reach.
[2018-08-30 03:20] VITALS: BP 101/71; PULSE 88; TEMP 98.1
--- NOTE | 2018-08-30 05:56 | NUR ---
Patient has had a headache on and off during the night. Given PRN medication as ordered, and patient reports medication to be effective. Denies having any other pain or discomfort at this time. Continues on seizure precautions. Bed alarm on at all times due to patient trying to take self to bathroom without calling for assistance. Staff is not to leave patient alone and unattended in the bathroom. Fall risk precautions are in place. Denies having any needs at this time. Sitting up in bed watching TV at this time. Given ice chips and diet pepsi as requested. Call light is within reach.
[2018-08-30 07:23] LABS: MEAN CELL VOLUME 108 fl (80.0-100.0); MEAN CORPUSCULAR HGB CONC 33 g/dl (33.0-37.0); MEAN PLATELET VOLUME 11.3 fl (7.4-10.4); PLATELET COUNT 164 K/mm3 (130-400); RED BLOOD COUNT 2.21 M/mm3 (4.10-5.30); REDCELL DISTRIBUTION WIDTH-CV 27.5 % (11.5-14.5)
[2018-08-30 07:24] VITALS: BP 112/77; PULSE 96; TEMP 98.1
[2018-08-30 07:25] LABS: HEMATOCRIT 23.8 % (37.0-47.0); HEMOGLOBIN 7.8 g/dl (12.5-16.0); MEAN CORPUSCULAR HEMOGLOBIN 35 pg (27.0-31.0)
[2018-08-30 07:36] LABS: ALBUMIN 2.6 gm/dL (3.5-5.0); BILIRUBIN,TOTAL 8.5 mg/dL (0.0-1.0); CALCIUM 8.4 mg/dL (8.4-10.2); CREATININE, serum 0.62 mg/dL (0.52-1.25); POTASSIUM 3.4 mmol/L (3.4-5.0); TOTAL PROTEIN 5.3 gm/dL (6.4-8.2)
[2018-08-30 07:46] LABS: ANISOCYTOSIS 3+; LYMPHOCYTE 53 % (20.0-51.0); NEUTROPHILS 37 % (42.0-75.2); PLATELET ESTIMATE NORMAL (NORMAL); STOMATOCYTE 3+
[2018-08-30 07:48] LABS: HYPOCHROMIA 1+; POLYCHROMASIA 1+
--- NOTE | 2018-08-30 08:58 | NUR ---
Pt assessment complete. Pt sitting up in bed upon entry, she is A/O x3. Her breathing is even and unlabored on RA. Pt denies SOB. Pt reports continued PATEL 8/10 and dizziness. Pt reports pain has moved to base of skull as well as frontal. No N/V at this time, reports eating two yogurts this AM. Seizure precautions in place. Will continue to monitor.
[2018-08-30] MEDS ORDERED: THIAMINE 1100 MG/TAB PO (10:10)
[2018-08-30] MEDS ORDERED: FOLIC ACID 11 MG/TA1 PO (10:10)
[2018-08-30] MEDS ORDERED: MULTI VITAMINS1 TAB PO (10:11)
[2018-08-30] MEDS ORDERED: KEPPRA1000 MG PO (10:11)
[2018-08-30] MEDS ORDERED: FERROUS SU325 MG/TAB PO (10:46)
[2018-08-30] MEDS ORDERED: LACTULOSE10 GM/153 PO (10:47)
[2018-08-30] MEDS ORDERED: PROTONIX 40MG T40 MG PO (10:47)
[2018-08-30] MEDS ORDERED: PREDNISONE10 MG PO (10:55)
[2018-08-30] MEDS ORDERED: ROXICODONE 55 MG/TAB PO (10:55)
--- NOTE | 2018-08-30 11:37 | NUR ---
ROSALINO informed that patient that patient is interested in SNF. ROSALINO met with patient about SNF options in [place]. Patient chose 1. [facility] and 2.[facility]. ROSALINO contacted Andres at [facility] and Andres reports [facility] does not cover SNF. Andres provided private pay costs. ROSALINO also spoke with Laquita from [facility], she also provided private pay costs. ROSALINO then informed patient of insurance not covering SNF and of how much it would cost her. Patient reported she would like to go home. ROSALINO then asked her about home health services. Patient then said she will be going home to [place]. SW also talked to patient about PT recommending patient be set up with a front wheeled walker. Patient chose [facility] for DME. ROSALINO faxed referral to [facility] for the walker. ROSALINO informed doctor of patients choice of going home to [place].
[2018-08-30 12:42] VITALS: BP 116/79; PULSE 114; TEMP 98.9
--- NOTE | 2018-08-30 13:00 | NUR ---
Patient currently sitting in recliner watching TV. Patient reports headache and pain in neck. Gave warm pack to help with pain. Ate lunch with no N/V, no further needs at this time. Call light within reach.
--- NOTE | 2018-08-30 13:05 | NUR ---
Primary nurse was assisted with [phone] patient care by [employer] student Cristiane Crockett and [facility] instructor Katie Bell RN-.
--- NOTE | 2018-08-30 16:44 | NUR ---
Discharge instructions reviewed with patients, all questions answered at this time. PICC removed from pts RUE by DANYA Romero.
--- NOTE | 2018-08-30 17:38 | NUR ---
Pt walked out of facility at this time.
== END 2018-08-30 17:38 | disposition home or self-care (01) | DRG 101 ==
LOC: COL.ER 00:33 → MEDICAL 06:30
PROVIDERS: Emergency Medicine; Nurse Practitioner Family; Physician Assistant; Psychiatry & Neurology Neurology; ADMIT Hospitalist
PROC: 009U3ZX Drainage of Spinal Canal, Percutaneous Approach, Diagnostic (ICD-10-PCS; principal; 2018-08-26)
PROC: B01B1ZZ Fluoroscopy of Spinal Cord using Low Osmolar Contrast (ICD-10-PCS; 2018-08-26)
DX: G40.509 Epileptic seizures related to external causes, not intractable, without status epilepticus (principal); E87.1 Hypo-osmolality and hyponatremia; F10.231 Alcohol dependence with withdrawal delirium; G95.29 Other cord compression; I10 Essential (primary) hypertension; K76.0 Fatty (change of) liver, not elsewhere classified; K70.10 Alcoholic hepatitis without ascites; E87.6 Hypokalemia; M48.02 Spinal stenosis, cervical region; E03.9 Hypothyroidism, unspecified; D64.9 Anemia, unspecified; N93.8 Other specified abnormal uterine and vaginal bleeding; Y90.8 Blood alcohol level of 240 mg/100 ml or more
CPT/HCPCS: 99223-AI; 99231-AI; 99232-AI; 99233-AI; A9585; C1751; J0780; J1170; J1650; J1953; J2060; J2405; J3411; J3475; J3480; J7030; J7050; J7512; P9016

== ENCOUNTER 2018-10-28 20:32 | Emergency (ER) | payer BC ==
[~2018-10-28 20:32] MED LIST changes: +FERROUS SU325 MG/TAB PO; +FOLIC ACID 11 MG/TA1 PO; +KEPPRA1000 MG PO; +LACTULOSE10 GM/153 PO; +MULTI VITAMINS1 TAB PO; +PREDNISONE10 MG PO; +ROXICODONE 55 MG/TAB PO; +THIAMINE 1100 MG/TAB PO
[2018-10-28 20:48] VITALS: BP 122/75
[2018-10-28 21:37] LABS: BASO # 0.1 (0.0-0.2); BASO % 0.8 % (0.0-2.0); GRAN # 5.2 (1.4-6.5); GRAN % 69.2 % (42.2-75.2); HEMOGLOBIN 13.4 g/dl (12.5-16.0); LYMPH # 1.2 (1.2-3.4); LYMPH % 15.4 % (20.0-51.0); MEAN CELL VOLUME 92 fl (80.0-100.0); MEAN CORPUSCULAR HEMOGLOBIN 29 pg (27.0-31.0); MEAN CORPUSCULAR HGB CONC 32 g/dl (33.0-37.0); MEAN PLATELET VOLUME 11.8 fl (7.4-10.4); MONO % 12.7 % (1.7-9.3); PLATELET COUNT 109 K/mm3 (130-400); RED BLOOD COUNT 4.59 M/mm3 (4.10-5.30); REDCELL DISTRIBUTION WIDTH-CV 18.8 % (11.5-14.5)
[2018-10-28 21:41] LABS: INR 1.2 (0.8-3.0); PROTHROMBIN TIME 13.3 SECONDS (9.7-12.8)
[2018-10-28 21:52] LABS: ALANINE AMINOTRANSFERASE 134 U/L (9-52); ALBUMIN 4.2 gm/dL (3.5-5.0); ALKALINE PHOSPHATASE 240 U/L (50-136); ANION GAP 33 mmol/L (7-16); BILIRUBIN,TOTAL 5.5 mg/dL (0.0-1.0); BLOOD UREA NITROGEN 4 mg/dL (7-17); CALCIUM 8.9 mg/dL (8.4-10.2); CREATININE, serum 0.71 (0.52-1.25); GLUCOSE 126 mg/dL (74-106); LIPASE 121 U/L (23-300); MAGNESIUM 1.6 mg/dL (1.6-2.3); POTASSIUM 3.9 mmol/L (3.4-5.0); SODIUM 133 mmol/L (137-145); TOTAL PROTEIN 8.2 gm/dL (6.4-8.2)
[2018-10-28 21:56] LABS: AST,SGOT 588 U/L (15-37)
[2018-10-28 21:59] LABS: CARBON DIOXIDE 11 mmol/L (22-30); CHLORIDE 89 mmol/L (98-107)
[2018-10-28 22:00] LABS: C-REACTIVE PROTEIN < 0.5 mg/dL (0.0-0.9)
[2018-10-28 22:02] LABS: TROPONIN-I < 0.012 ng/mL (0.000-0.035)
[2018-10-28 22:18] LABS: ARTERIAL BLD GAS O2 SATURATION 96.9 % (92-100); ARTERIAL BLD GAS TCO2 CT 14.1; ARTERIAL BLOOD GAS BASE EXCESS -8.9 (-2-2); ARTERIAL BLOOD GAS HCO3 13.4 meq/L (22-26); ARTERIAL BLOOD GAS PO2 104.1 mmHg (80-100); ARTERIAL BLOOD GAS pH 7.42 (7.35-7.45)
[2018-10-28 22:53] LABS: LACTIC ACID 17.5 mmol/L (0.4-2.0)
[2018-10-28 22:58] LABS: ACETAMINOPHEN < 10 ug/mL (10-30); ALCOHOL(ethanol),MEDICAL < 10 mg/dL
[2018-10-28 23:13] VITALS: TEMP 100.1
[2018-10-28 23:30] VITALS: PULSE 90
== END 2018-10-28 23:45 | disposition short-term general hospital (02) ==
LOC: COL.ER 20:32
PROVIDERS: Emergency Medicine
DX: F10.239 Alcohol dependence with withdrawal, unspecified (principal); E87.2 Acidosis; E03.9 Hypothyroidism, unspecified; R56.9 Unspecified convulsions; Z87.19 Personal history of other diseases of the digestive system; Z90.49 Acquired absence of other specified parts of digestive tract
CPT/HCPCS: J2060; J2550; J7030

== ENCOUNTER 2018-11-15 12:47 | Emergency (ER) | payer BC ==
[~2018-11-15] VITALS: Ht 167.6 cm; Wt 72.7 kg
[2018-11-15 12:54] VITALS: TEMP 97.1
[2018-11-15 13:55] LABS: COLLECTION METHOD CLEAN CATCH
[2018-11-15 14:39] LABS: INR 1.8 (0.8-3.0); PROTHROMBIN TIME 20.2 SECONDS (9.7-12.8)
[2018-11-15 14:39] LABS: BASO # 0.1 (0.0-0.2); BASO % 0.4 % (0.0-2.0); EOS % 0.1 % (0-4.0); GRAN # 8.9 (1.4-6.5); GRAN % 69.4 % (42.2-75.2); HEMATOCRIT 38.2 % (37.0-47.0); HEMOGLOBIN 12.5 g/dl (12.5-16.0); LYMPH # 2.4 (1.2-3.4); LYMPH % 18.8 % (20.0-51.0); MEAN CELL VOLUME 93 fl (80.0-100.0); MEAN CORPUSCULAR HEMOGLOBIN 30 pg (27.0-31.0); MEAN CORPUSCULAR HGB CONC 33 g/dl (33.0-37.0); MEAN PLATELET VOLUME 11.2 fl (7.4-10.4); MONO # 1.3 (0.1-0.6); MONO % 10.4 % (1.7-9.3); PLATELET COUNT 154 K/mm3 (130-400); RED BLOOD COUNT 4.12 M/mm3 (4.10-5.30); REDCELL DISTRIBUTION WIDTH-CV 21.3 % (11.5-14.5)
[2018-11-15 14:45] LABS: ALANINE AMINOTRANSFERASE 19 U/L (9-52); ALBUMIN 3.9 gm/dL (3.5-5.0); ANION GAP 17 mmol/L (7-16); AST,SGOT 233 U/L (15-37); CALCIUM 9.3 mg/dL (8.4-10.2); CARBON DIOXIDE 15 mmol/L (22-30); CHLORIDE 111 mmol/L (98-107); CREATINE KINASE 791 U/L (30-135); CREATININE, serum 1.56 (0.52-1.25); LIPASE 277 U/L (23-300); POTASSIUM 4.1 mmol/L (3.4-5.0); SODIUM 143 mmol/L (137-145)
[2018-11-15 14:46] LABS: MUCOUS Present /lpf; PH 5 (5-8); SQUAMOUS EPITHELIAL 0-2 /hpf; URINE APPEARANCE Cloudy; URINE BACTERIA None Seen /hpf; URINE BILIRUBIN Positive (NEGATIVE); URINE BLOOD 2+ (NEGATIVE); URINE COLOR Amber; URINE GLUCOSE 1+ (NEGATIVE); URINE KETONE Negative (NEGATIVE); URINE LEUKOCYTE ESTERASE Negative (NEGATIVE); URINE NITRATE Negative (NEGATIVE); URINE PROTEIN(semi-quant) 2+ (NEGATIVE); URINE RBC 0-2 /hpf; URINE UROBILINOGEN >=4.0 mg/dL (NEGATIVE)
[2018-11-15 14:47] LABS: LACTIC ACID 5.3 mmol/L (0.4-2.0)
[2018-11-15 14:49] LABS: ALCOHOL(ethanol),MEDICAL < 10 mg/dL; BILIRUBIN,TOTAL 36.4 mg/dL (0.0-1.0); BLOOD UREA NITROGEN < 2 mg/dL (7-17)
[2018-11-15 14:52] LABS: ALKALINE PHOSPHATASE 212 U/L (50-136); GLUCOSE 96 mg/dL (74-106)
[2018-11-15 14:53] LABS: TOTAL PROTEIN 8.7 gm/dL (6.4-8.2)
[2018-11-15 15:09] LABS: TROPONIN-I 0.647 ng/mL (0.000-0.035)
[2018-11-15 16:15] VITALS: BP 102/75; PULSE 85
== END 2018-11-15 16:30 | disposition short-term general hospital (02) ==
LOC: COL.ER 12:47
PROVIDERS: Emergency Medicine
DX: K72.90 Hepatic failure, unspecified without coma (principal); K72.00 Acute and subacute hepatic failure without coma; I10 Essential (primary) hypertension; F10.20 Alcohol dependence, uncomplicated; Z90.49 Acquired absence of other specified parts of digestive tract
CPT/HCPCS: C9113; J7030